=== PATIENT | male | born 1970 | race Two or more races ===

== ENCOUNTER 2022-06-09 20:54 | Emergency (ER) | payer BC ==
[2022-06-09 21:19] VITALS: BP 145/87; PULSE 67; RESP 18; TEMP 98; BMI 18.3
[2022-06-09] MEDS ORDERED: OXcarbazepine 300 MG/5 ML 250 ML BULK BOTTLE PO ONE (21:20)
== END 2022-06-09 22:16 | disposition home or self-care (01) ==
LOC: FER 20:54
DX: G52.1 Disorders of glossopharyngeal nerve (principal)
CPT/HCPCS: 70450-TC; 93005; 99284-25

== ENCOUNTER 2022-12-01 14:15 | Emergency (ER) | payer BC ==
[2022-12-01 14:33] VITALS: BP 120/82; PULSE 58; RESP 16; TEMP 98.7; BMI 23.1
[2022-12-01] MEDS ORDERED: KETOROLAC TROMETHAMINE 60 MG/2 ML VIAL IM ONE (15:23)
[2022-12-01] MEDS ORDERED: KETOROLAC TROMETHAMINE 60 MG/2 ML VIAL ONE (15:26)
== END 2022-12-01 15:36 | disposition home or self-care (01) ==
LOC: FER 14:15
PROC: 3E0233Z Introduction of Anti-inflammatory into Muscle, Percutaneous Approach (ICD-10-PCS; principal; 2022-12-01)
DX: M46.92 Unspecified inflammatory spondylopathy, cervical region (principal)
CPT/HCPCS: 72050-TC-FY; 99284-25